=== PATIENT | female | born 1930 | race African-American/Black ===

== ENCOUNTER 2019-10-18 17:05 | Emergency (ER) | payer OTHER ==
[~2019-10-18] VITALS: Ht 167.6 cm; Wt 85.0 kg
[2019-10-18] MEDS ORDERED: ACETAMINOPHEN 325MG TABLET PO STA (18:38)
[2019-10-18] MEDS ORDERED: HYDROCODONE/ACETAMINOPHEN 5/325MG TABLET PO STA (18:38)
[2019-10-18 18:48] LABS: HEMATOCRIT. 38.7 % (36.0-48.0); HEMOGLOBIN. 12.7 g/dL (12.0-16.0); MEAN CORPUSCULAR HEMOGLOBIN 28.9 pg (28.0-32.0); MEAN CORPUSCULAR VOLUME 88.2 fL (81.0-99.0); MEAN PLATELET VOLUME 10.6 fl (7.4-10.4); PLATELET 124 x1000/uL (130-400); RED BLOOD CELL COUNT 4.39 mill/uL (4.2-5.4); RED CELL DISTRIBUTION WIDTH 16.3 % (11.6-14.6)
[2019-10-18 18:51] LABS: CHLORIDE 106 mEq/L (98-107); INR 1.1; PROTHROMBIN TIME 11.1 sec (9.6-11.0)
[2019-10-18 19:33] LABS: PLATELET ESTIMATE SLIGHTLY DECREASED
[2019-10-18 22:15] VITALS: BP 148/70
== END 2019-10-18 22:19 | disposition home or self-care (01) ==
LOC: ER 17:05
DX: M25.562 Pain in left knee (principal); I11.0 Hypertensive heart disease with heart failure; I50.9 Heart failure, unspecified; E11.9 Type 2 diabetes mellitus without complications; F03.90 Unspecified dementia, unspecified severity, without behavioral disturbance, psychotic disturbance, mood disturbance, and anxiety
CPT/HCPCS: 36415; 73562; 80053; 85025; 93971; 99284